=== PATIENT | male | born 1985 | race Caucasian/White ===

== ENCOUNTER 2018-01-09 12:53 | Emergency (ER) | payer OTHER, SELFPAY ==
[2018-01-09 12:59] VITALS: BP 162/82; PULSE 91; RESP 15; TEMP 36.9; O2SAT 100; BMI 31.3
--- NOTE | 2018-01-09 13:20 | ED_ITS ---
HPI - Back Pain/Injury General Chief Complaint: Back Pain/Injury Stated Complaint: Severe Back Pain Time Seen by Provider: 01/09/18 12:55 Source: patient Mode of arrival: ambulatory Limitations: no limitations History of Present Illness HPI Narrative: Otherwise healthy 32-year-old male here for evaluation of lower back pain which is bilateral but left greater than right. He states that it occurred last evening when he bent over to pull dishes at the [employer]. Has been having pain since then. No fevers, no loss of bowel or bladder. No urinary continence. Has had off and on lower back pain since he was 21 years old. Has not tried anything for this prior to arrival. Related Data Previous Rx's Medication Instructions Recorded cyclobenzaprine 10 mg PO TID PRN #12 tab 01/09/18 hydrocodone-acetaminophen [Rousseau] 1 tab PO Q6H PRN #7 tab 01/09/18 Allergies Allergy/AdvReac Type Severity Reaction Status Date / Time No Known Drug Allergies Allergy Verified 01/09/18 12:59 Review of Systems Constitutional Denies fever(s) ENT Ears, Nose, Mouth, and Throat: Denies disequilibrium Gastrointestinal Gastrointestinal: Denies change in bowel habits and Denies fecal incontinence Genitourinary Denies difficulty urinating, Denies urinary frequency, Denies urinary hesitancy , Denies urinary incontinence and Denies urinary urgency Musculoskeletal Reports back pain, Denies myalgias, Denies arthralgias and Denies tingling Integumentary/Breasts Denies lesions and Denies rash Neurologic Denies restless legs, Denies tingling and Denies disequilibrium PFSH Medical History Healthy adult (Acute) Surgical History Hx of appendectomy (Acute) Exam Initial Vital Signs Initial Vital Signs: Vital Signs Temperature 98.4 F 01/09/18 12:59 Pulse Rate 91 H 01/09/18 12:59 Respiratory Rate 15 01/09/18 12:59 Blood Pressure 162/82 H 01/09/18 12:59 Pulse Oximetry 100 01/09/18 12:59 Const General: cooperative, healthy appearing, comfortable, well developed, well groomed and No acute distress Orientation: alert, awake and oriented x3 HENMT Head: normal to inspection and normocephalic Resp Effort & Inspection: normal respiratory effort Back/Spine/Pelvis Back: No CVA tenderness Thoracic/Lumbar Spine: other (Tenderness to palpation bilateral lower back with left greater than right. Potentially some muscle fullness on the left compared to the right.) Skin Lesions: no lesions Rashes: no rashes Neuro Cognition: normal cognition Speech: speech normal Gait: normal gait Extrem General: normal to inspection and capillary refill normal Psych Appearance: grossly normal and well kempt Course Orders Ordered: Discontinued Medications Ketorolac Tromethamine (Toradol) 30 mg IM NOW ONE Stop: 01/09/18 13:21 Vital Signs - 8 hr 01/09/18 12:59 Temperature 98.4 F Pulse Rate 91 H Respiratory Rate 15 Blood Pressure 162/82 H Pulse Oximetry 100 MDM - Back Pain/Injury MDM Narrative Medical decision making narrative: Patient has no red flag symptoms concerning for fracture, cauda equina, metastasis. Has not had a recent instrumentation which makes epidural hematoma/abscess unlikely. No indication for radiologic studies today. We did discuss the importance of staying active in the importance of anti-inflammatories. He was given a Toradol shot here in the emergency department. Will send home with a prescription for some Flexeril because of the muscle fullness on his left lower back. Will also send home with a very short course of opioid pain medication. Patient was given return precautions. He expressed understanding and agreement with plan. Discharge Plan Departure Patient Disposition: Home Clinical Impression: Lower back pain Instructions: Back Pain (Alternative Therapy), DI for Low Back Pain, Activity May Be Better then Rest for Low Back Pain Recovery Activity Restrictions/Additional Instructions: I do recommend that you start a course of anti-inflammatories such as Motrin or Naprosyn or ibuprofen. You also can add Tylenol on top of this medication. Take the other medications you were given a prescription for today as directed. Return to the emergency department for any new or worsening symptoms. Call your primary care provider for follow-up. Prescriptions: New cyclobenzaprine 10 mg tablet 10 mg PO TID PRN (Reason: muscle spasm) Qty: 12 RF: 0 hydrocodone-acetaminophen [Rousseau] 5-325 mg tablet 1 tab PO Q6H PRN (Reason: pain) Qty: 7 RF: 0
[2018-01-09] MEDS: KETOROLAC 60 MG/2 ML VIAL 30 MG IM (13:37)
[2018-01-09 13:49] VITALS: BP 125/86; PULSE 87; RESP 15; O2SAT 98
== END 2018-01-09 14:00 | disposition home or self-care (01) ==
PROVIDERS: Emergency Provider Emergency Medicine
DX: M54.5 Low back pain (principal)
CPT/HCPCS: 96372; 99282; 99283; J1885